=== PATIENT | female | born 1965 | race Caucasian/White ===

== ENCOUNTER 2018-03-24 05:39 | Day surgery (SDC) | payer BC ==
[2018-03-24] MEDS ORDERED: CEFAZOLIN 1 GM/50 ML (PMX) 50 ML IVPB (06:00)
[2018-03-24] MEDS ORDERED: LACTATED RINGER'S 1,000 ML IV (06:30)
[2018-03-24] MEDS ORDERED: CEFAZOLIN 1 GM INJ (07:00)
[2018-03-24] MEDS ORDERED: PROPOFOL 20 ML (07:30)
[2018-03-24] MEDS ORDERED: FENTAnyl 50 MCG/ML VIAL (07:30)
[2018-03-24] MEDS ORDERED: MIDAZOLAM 1 MG/ML 2 ML INJ (07:30)
[2018-03-24] MEDS ORDERED: FAMOTIDINE 20 MG INJ (07:30)
[2018-03-24] MEDS ORDERED: ONDANSETRON 4 MG INJ (07:30)
[2018-03-24] MEDS ORDERED: DEXAMETHASONE 4 MG/ML 1 ML INJ (07:30)
[2018-03-24] MEDS: BUPIVACAINE 0.5% (SDV) 30 ML INJ (07:39)
[2018-03-24] MEDS ORDERED: EPHEDrine SULFATE 50 MG/5 ML SYG (07:57)
[2018-03-24] MEDS ORDERED: HYDROmorphONE 1 MG/5 ML IV SYRINGE IV ×3 (08:00)
[2018-03-24] MEDS ORDERED: OXYCODONE/ACETAMINOPHEN (5/325) TAB PO (08:00)
[2018-03-24] MEDS ORDERED: MEPERIDINE 25 MG INJ IV (08:00)
[2018-03-24] MEDS: DEXAMETHASONE 4 MG/ML 1 ML INJ (08:00)
[2018-03-24] MEDS ORDERED: ONDANSETRON 4 MG INJ IV (08:00)
[2018-03-24] MEDS ORDERED: DIPHENHYDRAMINE 50 MG INJ IV (08:00)
[2018-03-24] MEDS ORDERED: PROCHLORPERAZINE 10 MG INJ IV (08:00)
[2018-03-24] MEDS ORDERED: FENTAnyl 50 MCG/ML VIAL IV (08:00)
== END 2018-03-24 10:15 | disposition home or self-care (01) ==
LOC: SDS 05:39
DX: D16.31 Benign neoplasm of short bones of right lower limb (principal)
CPT/HCPCS: 28124; 88304; 88311